=== PATIENT | male | born 1955 | race Caucasian/White ===

== ENCOUNTER 2020-06-07 16:13 | Emergency (ER) | payer BC, OTHER ==
[~2020-06-07] VITALS: Ht 177.8 cm; Wt 89.3 kg
[2020-06-07 17:21] LABS: BASOPHILS % (AUTO) 0 % (0-10); EOSINOPHILS # (AUTO) 0.1 10^3/uL (0.0-0.3); EOSINOPHILS % (AUTO) 1 % (0-10); HEMATOCRIT 45 % (40-54); HEMOGLOBIN 15.1 G/DL (13.3-17.7); LYMPHOCYTES # (AUTO) 1.4 X 10^3 (1.0-4.0); LYMPHOCYTES % (AUTO) 12 % (12-44); MEAN CORPUSCULAR HEMOGLOBIN 28 PG (25-34); MEAN CORPUSCULAR HGB CONC 34 G/DL (32-36); MEAN CORPUSCULAR VOLUME 84 FL (80-99); MEAN PLATELET VOLUME 10.3 FL (7.4-10.4); MONOCYTES # (AUTO) 0.6 X 10^3 (0.0-1.0); MONOCYTES % (AUTO) 5 % (0-12); NEUTROPHILS # (AUTO) 9.7 X 10^3 (1.8-7.8); NEUTROPHILS % (AUTO) 81 % (42-75); PLATELET COUNT 246 10^3/uL (130-400); WHITE BLOOD COUNT 11.9 10^3/uL (4.3-11.0)
--- NOTE | 2020-06-07 17:25 | ED GI ---
General Chief Complaint: Abdominal/GI Problems Stated Complaint: ABD PAIN,ACID REFLEX Nursing Triage Note: Patient presents to the ED with c/o abdominal cramping, nausea, and vomiting. He reports that he is lactose intolerant and has been eating cheese. He states yesterday he had 2 loose stools and today he woke up with abdominal pain, cramping, and nausea with vomiting starting just prior to arriving at the ED. Sepsis Screen: No Definite Risk Source of Information: Patient History of Present Illness Date Seen by Provider: Jun 07, 2020 Time Seen by Provider: 16:48 Initial Comments 65-year-old male presenting with concerns of abdominal cramping, nausea, vomiting, loose stools. He states that he has a history of hiatal hernia and diverticulitis as well as bowel obstructions in the past. He gets issues if he eats too much dairy or cheese products. Recently a friend had given him some sa usage and a block of cheese as a gift and he had been eating that each morning. He even had eaten some this morning even though he been having issues for the last several days. Today he was having worsening abdominal cramping and nausea with vomiting. He denies any fever or chills. He has had no blood in his stools. He has no localized pain in his belly it is diffuse. He has no pain with urination. He has seen no blood in his emesis. When he does eat it does not make his abdominal cramping any worse. He does feel better after he vomits. The pain does not radiate anywhere it is just diffuse throughout his abdomen. He denies any chest pain or shortness of breath. He has no pain in his back or shoulders. He is supposed to be taking omeprazole but does not take it regularly. Allergies and Home Medications Allergies Coded Allergies: No Known Drug Allergies (Unverified , 06/07/20) Home Medications Metoclopramide HCl 10 Mg Tablet, 10 MG PO QID PRN for NAUSEA/VOMITING Prescribed by: FELI STODDARD on 06/07/201923 Patient Home Medication List Home Medication List Reviewed: Yes Review of Systems Review of Systems Constitutional: No chills, No dizziness, No fever EENTM: No Symptoms Reported Respiratory: No Symptoms Reported Cardiovascular: No Symptoms Reported Gastrointestinal: See HPI, Abdominal Pain (Diffuse abdominal cramping worsening over the last several days); Denies Blood Streaked Stools; Constipated (Only getting some small loose stools out in the last few days); Denies Difficulty Swallowing; Nausea; Denies Rectal Bleeding; Vomiting Genitourinary: No Symptoms Reported Musculoskeletal: no symptoms reported Skin: no symptoms reported Psychiatric/Neurological: Denies Headache Endocrine: No Symptoms Reported Hematologic/Lymphatic: No Symptoms Reported Past Ojzyvap-Ztajpw-Ywgabl Hx Past Med/Social Hx: Reviewed Nursing Past Med/Soc Hx Patient Social History Alcohol Use: Rarely Uses Smoking Status: Never a Smoker 2nd Hand Smoke Exposure: No Recent Infectious Disease Expo: No Recent Hopitalizations: No Seasonal Allergies Seasonal Allergies: No Past Medical History Surgeries: No Respiratory: No Cardiac: No Neurological: No Genitourinary: No Gastrointestinal: Yes Gastroesophageal Reflux, Diverticulosis, Hiatal Hernia Musculoskeletal: No Endocrine: Yes HEENT: No Cancer: No Psychosocial: No Integumentary: No Blood Disorders: No Physical Exam Vital Signs Vital Signs - First Documented 06/07/20 17:00 Temp 36.0 Pulse 66 Resp 19 B/P (MAP) 154/86 (108) Pulse Ox 95 O2 Delivery Room Air Capillary Refill : Less Than 3 Seconds Height/Weight/BMI Height: '" Weight: lbs. oz. kg; 28.00 BMI Method: General Appearance: WD/WN, mild distress HEENT: PERRL/EOMI, pharynx normal Neck: non-tender, full range of motion, supple, normal inspection Respiratory: chest non-tender, lungs clear, normal breath sounds, no respiratory distress, no accessory muscle use Cardiovascular: normal peripheral pulses, regular rate, rhythm Gastrointestinal: normal bowel sounds, soft, no pulsatile mass; No guarding, No rebound; tenderness (Mild diffuse tenderness with palpation) Rectal: deferred Extremities: normal range of motion, normal capillary refill Neurologic/Psychiatric: alert, oriented x 3 Skin: normal color, warm/dry Images 1 - Mild diffuse abdominal tenderness with palpation. No guarding or rebound Progress/Results/Core Measures Results/Orders Lab Results Laboratory Tests Test 06/07/20 17:00 06/07/20 18:17 Range/Units White Blood Count 11.9 H 4.3-11.0 10^3/uL Red Blood Count 5.38 4.35-5.85 10^6/uL Hemoglobin 15.1 13.3-17.7 G/DL Hematocrit 45 40-54 % Mean Corpuscular Volume 84 80-99 FL Mean Corpuscular Hemoglobin 28 25-34 PG Mean Corpuscular Hemoglobin Concent 34 32-36 G/DL Red Cell Distribution Width 12.7 10.0-14.5 % Platelet Count 246 130-400 10^3/uL Mean Platelet Volume 10.3 7.4-10.4 FL Immature Granulocyte % (Auto) 0 % Neutrophils (%) (Auto) 81 H 42-75 % Lymphocytes (%) (Auto) 12 12-44 % Monocytes (%) (Auto) 5 0-12 % Eosinophils (%) (Auto) 1 0-10 % Basophils (%) (Auto) 0 0-10 % Neutrophils # (Auto) 9.7 H 1.8-7.8 X 10^3 Lymphocytes # (Auto) 1.4 1.0-4.0 X 10^3 Monocytes # (Auto) 0.6 0.0-1.0 X 10^3 Eosinophils # (Auto) 0.1 0.0-0.3 10^3/uL Basophils # (Auto) 0.0 0.0-0.1 10^3/uL Immature Granulocyte # (Auto) 0.0 0.0-0.1 10^3/uL Sodium Level 138 135-145 MMOL/L Potassium Level 4.1 3.6-5.0 MMOL/L Chloride Level 101 98-107 MMOL/L Carbon Dioxide Level 24 21-32 MMOL/L Anion Gap 13 5-14 MMOL/L Blood Urea Nitrogen 20 H 7-18 MG/DL Creatinine 1.01 0.60-1.30 MG/DL Estimat Glomerular Filtration Rate > 60 BUN/Creatinine Ratio 20 Glucose Level 120 H 70-105 MG/DL Calcium Level 9.6 8.5-10.1 MG/DL Corrected Calcium 8.5-10.1 MG/DL Magnesium Level 1.9 1.6-2.4 MG/DL Total Bilirubin 0.7 0.1-1.0 MG/DL Aspartate Amino Transf (AST/SGOT) 23 5-34 U/L Alanine Aminotransferase (ALT/SGPT) 16 0-55 U/L Alkaline Phosphatase 67 40-136 U/L Troponin I < 0.30 <0.30 NG/ML Pro-B-Type Natriuretic Peptide 16.1 <75.0 PG/ML Total Protein 7.4 6.4-8.2 GM/DL Albumin 4.8 H 3.2-4.5 GM/DL Lipase 37 8-78 U/L Urine Color YELLOW Urine Clarity CLEAR Urine pH 6.0 5-9 Urine Specific [place] >=1.030 1.016-1.022 Urine Protein NEGATIVE NEGATIVE Urine Glucose (UA) NEGATIVE NEGATIVE Urine Ketones 2+ H NEGATIVE Urine Nitrite NEGATIVE NEGATIVE Urine Bilirubin NEGATIVE NEGATIVE Urine Urobilinogen 0.2 < = 1.0 MG/DL Urine Leukocyte Esterase NEGATIVE NEGATIVE Urine RBC (Auto) NEGATIVE NEGATIVE Urine RBC NONE /HPF Urine WBC NONE /HPF Urine Squamous Epithelial Cells NONE /HPF Urine Crystals NONE /LPF Urine Bacteria TRACE /HPF Urine Casts NONE /LPF Urine Mucus SMALL H /LPF Urine Culture Indicated NO My Orders Orders - FELI STODDARD MD Comprehensive Metabolic Panel (06/07/20 17:14) Lipase (06/07/20 17:14) Ua Culture If Indicated (06/07/20 17:14) Ed Iv/Invasive Line Start (06/07/20 17:14) Cbc With Automated Diff (06/07/20 17:14) Ekg Tracing (06/07/20 17:14) Monitor-Rhythm Ecg Trace Only (06/07/20 17:14) Magnesium (06/07/20 17:14) Troponin I Fs (06/07/20 17:14) Probnp Fs (06/07/20 17:14) Ns Iv 1000 Ml (Sodium Chloride 0.9%) (06/07/20 17:55) Pantoprazole Injection (Protonix Injecti (06/07/20 17:55) Ondansetron Injection (Zofran Injectio (06/07/20 17:55) Ketorolac Injection (Toradol Injection) (06/07/20 17:55) Ct Abdomen/Pelvis W (06/07/20 17:56) Iohexol Injection (Omnipaque 350 Mg/Ml 1 (06/07/20 18:15) Received Contrast (Hold Metformin- Contr (06/07/20 18:15) Sodium Chloride Flush (Catheter Flush Sy (06/07/20 18:15) Ns (Ivpb) (Sodium Chloride 0.9% Ivpb Bag (06/07/20 18:15) Medications Given in ED Current Medications Medications Dose Ordered Sig/Tammi Route Start Time Stop Time Status Last Admin Dose Admin Iohexol 100 ml ONCE ONCE IV 06/07/20 18:15 06/07/20 18:16 DC 06/07/20 18:23 100 ML Sodium Chloride 10 ml NEEDED PRN IV 06/07/20 18:15 06/07/20 19:33 DC 06/07/20 18:23 10 ML Sodium Chloride 100 ml ONCE ONCE IV 06/07/20 18:15 06/07/20 18:16 DC 06/07/20 18:23 80 ML Vital Signs/I&O 06/07/20 06/07/20 17:00 19:32 Temp 36.0 Pulse 66 81 Resp 19 17 B/P (MAP) 154/86 (108) 159/78 Pulse Ox 95 98 O2 Delivery Room Air Room Air 06/08/20 00:00 Intake Total 1000 ml Balance 1000 ml Blood Pressure Mean: 108 Progress Progress Note #1: Progress Note Obtain labs with urinalysis and electrocardiogram. Electrocardiogram done due to his age and having epigastric and upper abdominal pain to evaluate for possible cardiac source of his symptoms. The electrocardiogram did not show any acute ST elevation or ischemic changes. There were no prior tracings for comparison. Try IV fluids for hydration, Zofran for nausea, Toradol for pain and inflammation, Protonix for gastritis and stomach irritation. Order a CT scan of the abdomen and pelvis to evaluate for possible colitis, diverticulitis, bowel obstruction, abdominal mass, cholecystitis, appendicitis, gastroenteritis, abdominal pathology to explain his symptoms. Progress Note #2: Progress Note Labs show a mild elevation of his white blood cell count of 11.9. His chemistry was stable without acute significant abnormality. His liver enzymes and lipase were elevated. His CT scan demonstrated inflammation of his intestines with dilated small bowel loops concerning for enteritis versus possible early small bowel obstruction. Discussed with the patient about the results and since he was tolerating oral intake and feeling better with treatment he wanted to try things at home. We will have him try a liquid diet and metoclopramide for motility. If his symptoms worsen return her be reevaluated. He may need admitted if he is not improving with the liquid diet and Reglan. Encouraged to take the omeprazole for acid reduction of the hiatal hernia as well. Initial ECG Impression Date: Jun 07, 2020 Initial ECG Impression Time: 16:46 Initial ECG Rate: 68 Initial ECG Rhythm: Normal Sinus Initial ECG Comparisson: No Previous ECG Available Comment Normal sinus rhythm with a heart rate of 68 bpm. NV interval [address] elevation. QT interval 392 ms with a QTc interval of 417 ms. There is no prior tracing available in the system. Diagnostic Imaging Diagonstic Imaging: CT Plain Films/CT/US/NM/MRI: abdomen, pelvis Comments [facility], [place] NAME: SATNAM HARRISON [facility] REC#: [id number] PT STATUS: REG ER : 1955 PHYSICIAN: FELI STODDARD MD ADMIT DATE: 06/07/20/ER FS Signed Date of Exam:06/07/20 CT ABDOMEN/PELVIS W PROCEDURE: CT abdomen and pelvis with contrast. TECHNIQUE: Multiple contiguous axial images were obtained through the abdomen and pelvis after administration of intravenous contrast. Auto Exposure Controls were utilized during the CT exam to meet ALARA standards for radiation dose reduction. All CT scans use one or more of the following dose optimizing techniques: automated exposure control, MA and/or KvP adjustment based on patient size and exam type or iterative reconstruction. DATE: June 07, 2020. COMPARISON: None. INDICATION: 65-year-old male, abdominal pain. FINDINGS: There is mild dependent atelectasis in the lung bases. The heart is not enlarged. There is no identified pericardial effusion. The liver is unremarkable in size and contour. There are subcentimeter low-attenuation lesions in the liver measuring roughly 5 mm in size or less which are too small to characterize. The main, right and left portal veins are patent. The gallbladder is unremarkable. There is no intrahepatic or extrahepatic bile duct dilation. The main pancreatic duct is not abnormally dilated. Unremarkable appearance of the pancreatic parenchyma. There is an accessory splenule on axial image 34. The spleen is normal in size. The adrenal glands are unremarkable. Unremarkable appearance of the renal parenchyma. The urinary collecting systems are not distended. There is no identified renal or ureteral stone. The urinary bladder is unremarkable in appearance. There is diverticulosis. There is no evidence of acute diverticulitis. There is no evidence of acute appendicitis. There are abnormally dilated segments of small bowel measuring up to approximately 2.8 cm in diameter. There are nondistended segments of distal ileum present. There is abnormal small bowel wall thickening in the left abdomen best illustrated on axial image 59 and adjacent sequential images. This is also well illustrated on coronal image 27 and adjacent sequential images. There is no identified pneumatosis. There is no portal venous gas. There is no free intraperitoneal air. There is no drainable fluid collection. There is a sizable volume free pelvic fluid. There are atherosclerotic calcifications. There are multiple abnormally prominent mesenteric lymph nodes measuring up to approximately 8 mm in short axis for example on axial image 49. There are subcentimeter short axis retroperitoneal lymph nodes as well. There is no identified acute bony abnormality. IMPRESSION: CT abdomen and pelvis: 1. Abnormal small bowel wall thickening and abnormal dilation of small bowel. This may relate to an infectious or inflammatory enteritis. The bowel distention may be reactive in nature. Early findings of a small bowel obstruction are difficult to exclude. 2. Prominent mesenteric and retroperitoneal lymph nodes which potentially could be reactive. Dictated by: Dictated on workstation # [id number] Dict: 06/07/20 1833 Trans: 06/07/201858 [facility] [id number] Interpreted by: BRITT ESPARZA MD Electronically signed by: BRITT ESPARZA MD 06/07/201858 Departure Impression Primary Impression: Enteritis Additional Impressions: Hiatal hernia with GERD Partial obstruction of small intestine Disposition: 01 HOME, SELF-CARE Condition: Stable Departure-Patient Inst. Decision time for Depature: 19:25 Referrals: NO,LOCAL PHYSICIAN (PCP) Primary Care Physician [facility] Patient Instructions: Acid Reflux and Gastroesophageal Reflux Disease in Adults, Small Bowel Obstruction (DC), Hiatal Hernia Add. Discharge Instructions: Follow a liquid diet for 24 to 48 hours to allow your intestines to rest and let the inflammation settle down. Use the nausea medicine to help keep your stomach settled so you can drink and stay hydrated. Advance to a bland diet after 48 hours. If you have increasing pain or vomiting despite liquid diet or bland diet then return or get checked in clinic to see if you need admit or scope to look at your stomach and intestines. Make sure you are taking your Omeprazole to help reduce the acid in your stomach and help with the hiatal hernia. You could establish with clinic at [facility] by calling [phone] All discharge instructions reviewed with patient and/or family. Voiced understanding. Scripts Metoclopramide HCl (Metoclopramide HCl) 10 Mg Tablet 10 MG PO QID PRN for NAUSEA/VOMITING for 7 Days, #28 TAB 0 Refills Prov: FELI STODDARD MD 06/07/20 FELI STODDARD MD Jun 07, 2020 17:25
[2020-06-07 17:32] LABS: ALKALINE PHOSPHATASE 67 U/L (40-136); BILIRUBIN,TOTAL 0.7 MG/DL (0.1-1.0); BUN/CREATININE RATIO 20; CALCIUM 9.6 MG/DL (8.5-10.1); CARBON DIOXIDE 24 MMOL/L (21-32); CHLORIDE 101 MMOL/L (98-107); CREATININE SERUM 1.01 MG/DL (0.60-1.30); GFR ESTIMATED > 60; GLUCOSE 120 MG/DL (70-105); MAGNESIUM 1.9 MG/DL (1.6-2.4); POTASSIUM 4.1 MMOL/L (3.6-5.0); SODIUM 138 MMOL/L (135-145)
[2020-06-07 17:33] LABS: ALANINE AMINOTRANSFERASE 16 U/L (0-55); ALBUMIN 4.8 GM/DL (3.2-4.5); LIPASE 37 U/L (8-78); TOTAL PROTEIN 7.4 GM/DL (6.4-8.2)
[2020-06-07] MEDS ORDERED: ONDANSETRON 4 MG/2 ML (SDV) Z0FRAN IVP STA (17:55)
[2020-06-07] MEDS ORDERED: NS IV 1000 ML 1,000 ML IV STA (17:55)
[2020-06-07] MEDS ORDERED: KETOROLAC 30 MG/ML VIAL IVP STA (17:55)
[2020-06-07] MEDS ORDERED: PANTOPRAZOLE 40 MG (PROTONIX) VIAL IV STA (17:55)
[2020-06-07] MEDS ORDERED: IOHEXOL 350 MG/ML 100 ML (OMNIPAQUE 350) VIAL IV ONE (18:15)
[2020-06-07] MEDS ORDERED: CATHETER FLUSH 10 ML SYR IV PRN (18:15)
[2020-06-07] MEDS ORDERED: HOLD METFORMIN - RECEIVED CONTRAST 20 ML VIAL IV SCH (18:15)
[2020-06-07] MEDS ORDERED: NS 100 ML (IVPB) BAG IV ONE (18:15)
[2020-06-07 18:27] LABS: BACTERIA,URINE TRACE /HPF; BILIRUBIN,URINE NEGATIVE (NEGATIVE); CLARITY,URINE CLEAR; COLOR,URINE YELLOW; GLUCOSE, URINE (UA) NEGATIVE (NEGATIVE); KETONES,URINE 2+ (NEGATIVE); LEUKOCYTE ESTERASE ,URINE NEGATIVE (NEGATIVE); NITRITE,URINE NEGATIVE (NEGATIVE); PROTEIN,URINE NEGATIVE (NEGATIVE)
--- NOTE | 2020-06-07 18:48 | Diagnostic Imaging Report ---
PROCEDURE: CT abdomen and pelvis with contrast. TECHNIQUE: Multiple contiguous axial images were obtained through the abdomen and pelvis after administration of intravenous contrast. Auto Exposure Controls were utilized during the CT exam to meet ALARA standards for radiation dose reduction. All CT scans use one or more of the following dose optimizing techniques: automated exposure control, MA and/or KvP adjustment based on patient size and exam type or iterative reconstruction. DATE: June 07, 2020. COMPARISON: None. INDICATION: 65-year-old male, abdominal pain. FINDINGS: There is mild dependent atelectasis in the lung bases. The heart is not enlarged. There is no identified pericardial effusion. The liver is unremarkable in size and contour. There are subcentimeter low-attenuation lesions in the liver measuring roughly 5 mm in size or less which are too small to characterize. The main, right and left portal veins are patent. The gallbladder is unremarkable. There is no intrahepatic or extrahepatic bile duct dilation. The main pancreatic duct is not abnormally dilated. Unremarkable appearance of the pancreatic parenchyma. There is an accessory splenule on axial image 34. The spleen is normal in size. The adrenal glands are unremarkable. Unremarkable appearance of the renal parenchyma. The urinary collecting systems are not distended. There is no identified renal or ureteral stone. The urinary bladder is unremarkable in appearance. There is diverticulosis. There is no evidence of acute diverticulitis. There is no evidence of acute appendicitis. There are abnormally dilated segments of small bowel measuring up to approximately 2.8 cm in diameter. There are nondistended segments of distal ileum present. There is abnormal small bowel wall thickening in the left abdomen best illustrated on axial image 59 and adjacent sequential images. This is also well illustrated on coronal image 27 and adjacent sequential images. There is no identified pneumatosis. There is no portal venous gas. There is no free intraperitoneal air. There is no drainable fluid collection. There is a sizable volume free pelvic fluid. There are atherosclerotic calcifications. There are multiple abnormally prominent mesenteric lymph nodes measuring up to approximately 8 mm in short axis for example on axial image 49. There are subcentimeter short axis retroperitoneal lymph nodes as well. There is no identified acute bony abnormality. IMPRESSION: CT abdomen and pelvis: 1. Abnormal small bowel wall thickening and abnormal dilation of small bowel. This may relate to an infectious or inflammatory enteritis. The bowel distention may be reactive in nature. Early findings of a small bowel obstruction are difficult to exclude. 2. Prominent mesenteric and retroperitoneal lymph nodes which potentially could be reactive. Dictated by: Dictated on workstation # [id number]
[2020-06-07] MEDS ORDERED: METO10TA3 PO (19:24)
[2020-06-07 19:32] VITALS: BP 159/78
== END 2020-06-07 19:32 | disposition home or self-care (01) ==
LOC: ER FS 16:15
DX: K52.9 Noninfective gastroenteritis and colitis, unspecified (principal); K44.0 Diaphragmatic hernia with obstruction, without gangrene
CPT/HCPCS: 36415; 74177; 80053; 81000; 83690; 83735; 83880; 84484; 85025; 93041

== ENCOUNTER 2021-01-02 08:49 | Emergency (ER) | payer BC ==
[~2021-01-02] VITALS: Ht 177.8 cm; Wt 81.8 kg
[~2021-01-02 08:49] MED LIST: MTC10T PO
[2021-01-02 08:51] VITALS: BP 146/70
[2021-01-02] MEDS ORDERED: ONDANSETRON 4 MG/2 ML (SDV) Z0FRAN IVP ONE (09:15)
[2021-01-02] MEDS ORDERED: NS IV 1000 ML 1,000 ML IV SCH (09:15)
--- NOTE | 2021-01-02 09:19 | ED Abdominal Pain ---
General Chief Complaint: Abdominal/GI Problems Stated Complaint: ABD PAIN,N/V,COUGH,SOB Nursing Triage Note: AMB TO ED WITH C/O VOMITING WITH ABD PAIN DECSCRIBES A BURNING. WAS SEEN AT [facility] YESTERDAY GIVEN A IM AND RX FOR DICYCLOMINE. Source of Information: Patient, Family Exam Limitations: No Limitations History of Present Illness Date Seen by Provider: Jan 02, 2021 Time Seen by Provider: 09:07 Initial Comments Patient is a 65-year-old male who presents to the emergency department today with a chief complaint of epigastric abdominal pain/burning. Onset about 24 hours ago. The patient has had multiple episodes of nausea and vomiting with subsequent dry heaves. He denies any black or bloody vomitus nothing that looks like coffee grounds he states it looks like a "brown water". He had a bowel movement at around 3:00 this morning and not diarrhea not black or bloody. No previous abdominal surgeries. 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 Patient thinks that maybe he has had too much ice cream with nuts in it recently. Denies any real fevers or chills. Has had a little cough. States that he is Covid vaccinated. Was seen at [facility] clinic yesterday given a shot for pain and prescribed dicyclomine. Patient states the medication has not worked. No family history of gallbladder disease. Nothing makes the pain any better or any worse but every time he tries to eat or drink he vomits. All other review of systems reviewed and negative except as stated. Timing/Duration: 24 Hours Severity/Quality: Severe, Burning Location: Epigastric Radiation: No Radiation Associated Symptoms: Nausea/Vomiting Allergies and Home Medications Allergies Coded Allergies: No Known Drug Allergies (Unverified , 06/07/20) Home Medications Metoclopramide HCl 10 Mg Tablet, 10 MG PO QID PRN for NAUSEA/VOMITING Prescribed by: FELI STODDARD on 06/07/201923 Patient Home Medication List Home Medication List Reviewed: Yes Review of Systems Review of Systems Constitutional: see HPI EENTM: No Symptoms Reported Respiratory: Cough Cardiovascular: No Symptoms Reported Gastrointestinal: Abdominal Pain, Nausea, Vomiting Genitourinary: No Symptoms Reported Musculoskeletal: no symptoms reported Skin: no symptoms reported All Other Systems Reviewed Negative Unless Noted: Yes Past Cloduls-Pfmdva-Ibtaad Hx Seasonal Allergies Seasonal Allergies: No Past Medical History Surgeries: No Respiratory: No Cardiac: No Neurological: No Genitourinary: No Gastrointestinal: Yes Gastroesophageal Reflux, Diverticulosis, Hiatal Hernia Musculoskeletal: No Endocrine: Yes HEENT: No Cancer: No Psychosocial: No Integumentary: No Blood Disorders: No Physical Exam Vital Signs Vital Signs - First Documented 01/02/21 08:51 Temp 35.1 Pulse 73 Resp 18 B/P (MAP) 146/70 (95) Pulse Ox 96 O2 Delivery Room Air Capillary Refill : Less Than 3 Seconds Height/Weight/BMI Height: '" Weight: lbs. oz. kg; 25.00 BMI Method: General Appearance: WD/WN, no apparent distress HEENT: PERRL/EOMI Respiratory: lungs clear, normal breath sounds, no respiratory distress, no accessory muscle use Cardiovascular: regular rate, rhythm Gastrointestinal: soft, abnormal bowel sounds (Hyperactive), distended (Mild), guarding (Voluntary), tenderness (Epigastric tenderness) Extremities: normal inspection, no pedal edema, no calf tenderness Neurologic/Psychiatric: alert, normal mood/affect, oriented x 3 Skin: normal color, warm/dry Progress/Results/Core Measures Results/Orders Lab Results Laboratory Tests Test 01/02/21 09:01 Range/Units White Blood Count 19.0 H 4.3-11.0 10^3/uL Red Blood Count 5.81 H 4.30-5.52 10^6/uL Hemoglobin 16.7 13.3-17.7 g/dL Hematocrit 49 40-54 % Mean Corpuscular Volume 85 80-99 fL Mean Corpuscular Hemoglobin 29 25-34 pg Mean Corpuscular Hemoglobin Concent 34 32-36 g/dL Red Cell Distribution Width 12.7 10.0-14.5 % Platelet Count 295 130-400 10^3/uL Mean Platelet Volume 10.5 9.0-12.2 fL Immature Granulocyte % (Auto) 0 % Neutrophils (%) (Auto) 82 H 42-75 % Lymphocytes (%) (Auto) 9 L 12-44 % Monocytes (%) (Auto) 9 0-12 % Eosinophils (%) (Auto) 0 0-10 % Basophils (%) (Auto) 0 0-10 % Neutrophils # (Auto) 15.6 H 1.8-7.8 10^3/uL Lymphocytes # (Auto) 1.6 1.0-4.0 10^3/uL Monocytes # (Auto) 1.6 H 0.0-1.0 10^3/uL Eosinophils # (Auto) 0.0 0.0-0.3 10^3/uL Basophils # (Auto) 0.0 0.0-0.1 10^3/uL Immature Granulocyte # (Auto) 0.1 0.0-0.1 10^3/uL Neutrophils % (Manual) 74 % Lymphocytes % (Manual) 9 % Monocytes % (Manual) 12 % Eosinophils % (Manual) 0 % Basophils % (Manual) 0 % Band Neutrophils 5 % Blood Morphology Comment NORMAL Sodium Level 137 135-145 MMOL/L Potassium Level 4.1 3.6-5.0 MMOL/L Chloride Level 101 98-107 MMOL/L Carbon Dioxide Level 20 L 21-32 MMOL/L Anion Gap 16 H 5-14 MMOL/L Blood Urea Nitrogen 26 H 7-18 MG/DL Creatinine 1.14 0.60-1.30 MG/DL Estimat Glomerular Filtration Rate 65 BUN/Creatinine Ratio 23 Glucose Level 149 H 70-105 MG/DL Calcium Level 10.6 H 8.5-10.1 MG/DL Corrected Calcium 8.5-10.1 MG/DL Total Bilirubin 1.9 H 0.1-1.0 MG/DL Aspartate Amino Transf (AST/SGOT) 23 5-34 U/L Alanine Aminotransferase (ALT/SGPT) 18 0-55 U/L Alkaline Phosphatase 77 40-136 U/L Total Protein 8.4 H 6.4-8.2 GM/DL Albumin 5.0 H 3.2-4.5 GM/DL Lipase 21 8-78 U/L My Orders Orders - TOSHIA GIRON MD Ed Iv/Invasive Line Start (01/02/21 09:15) Cbc With Automated Diff (01/02/21 09:15) Comprehensive Metabolic Panel (01/02/21 09:15) Lipase (01/02/21 09:15) Ns Iv 1000 Ml (Sodium Chloride 0.9%) (01/02/21 09:15) Ondansetron Injection (Zofran Injectio (01/02/21 09:15) Manual Differential (01/02/21 09:01) Sucralfate Tablet (Carafate Tablet) (01/02/21 10:00) Lidocaine 2% Viscous 15 Ml (Xylocaine Vi (01/02/21 10:00) Antacid Suspension (Mylanta Suspension (01/02/21 10:00) Us Gallbladder [id number] (01/02/21 11:01) Medications Given in ED Current Medications Medications Dose Ordered Sig/Tammi Route Start Time Stop Time Status Last Admin Dose Admin Al Hydrox/Mg Hydrox/Simethicone 30 ml ONCE ONCE PO 01/02/21 10:00 01/02/21 10:01 DC 01/02/21 10:31 30 ML Lidocaine HCl 5 ml ONCE ONCE PO 01/02/21 10:00 01/02/21 10:01 DC 01/02/21 10:31 5 ML Ondansetron HCl 8 mg ONCE ONCE IVP 01/02/21 09:15 01/02/21 09:16 DC 01/02/21 09:27 8 MG Sucralfate 1 gm ONCE ONCE PO 01/02/21 10:00 01/02/21 10:01 DC 01/02/21 10:30 1 GM Vital Signs/I&O 01/02/21 08:51 Temp 35.1 Pulse 73 Resp 18 B/P (MAP) 146/70 (95) Pulse Ox 96 O2 Delivery Room Air Blood Pressure Mean: 95 Diagnostic Imaging Diagonstic Imaging: Ultrasound Plain Films/CT/US/NM/MRI: other (gallbladder) Comments normal preliminary Departure Impression Primary Impression: Abdominal pain Qualified Codes: R10.13 - Epigastric pain Additional Impression: Gastroesophageal reflux Qualified Codes: K21.9 - Gastro-esophageal reflux disease without esophagitis Disposition: HOME, SELF-CARE Condition: Stable Departure-Patient Inst. Decision time for Depature: 12:06 Referrals: NO,LOCAL PHYSICIAN (PCP/Family) Primary Care Physician Patient Instructions: Abdominal Pain, Adult ED, Acid Reflux and GERD in Adults (DC) Add. Discharge Instructions: Take [id number] Prilosec, daily for the next month. I have also given you a prescription for Carafate this will help coat your stomach and make it feel little bit better. Nausea medicines have also been sent to your pharmacy. You can take extra strength Tylenol at home as needed for abdominal pain. Avoid fatty meals as this can worsen reflux symptoms. Follow-up with your primary care physician. Return to the emergency room for a recheck if fever, vomiting or for any new, concerning or emergent complaints. Scripts Ondansetron (Ondansetron Odt) 4 Mg Tab.rapdis 4 MG PO Q8H for nausea, #20 TAB Prov: TOSHIA GIRON MD 01/02/21 Sucralfate (Carafate) 1 Gm Tablet 1 GM PO QID, #60 TAB Prov: TOSHIA GIRON MD 01/02/21 TOSHIA GIRON MD Jan 02, 2021 09:19
[2021-01-02 09:21] LABS: BASOPHILS % (AUTO) 0 % (0-10); EOSINOPHILS % (AUTO) 0 % (0-10); HEMATOCRIT 49 % (40-54); HEMOGLOBIN 16.7 g/dL (13.3-17.7); LYMPHOCYTES # (AUTO) 1.6 10^3/uL (1.0-4.0); LYMPHOCYTES % (AUTO) 9 % (12-44); MEAN CORPUSCULAR HEMOGLOBIN 29 pg (25-34); MEAN CORPUSCULAR HGB CONC 34 g/dL (32-36); MEAN CORPUSCULAR VOLUME 85 fL (80-99); MEAN PLATELET VOLUME 10.5 fL (9.0-12.2); MONOCYTES # (AUTO) 1.6 10^3/uL (0.0-1.0); MONOCYTES % (AUTO) 9 % (0-12); NEUTROPHILS # (AUTO) 15.6 10^3/uL (1.8-7.8); NEUTROPHILS % (AUTO) 82 % (42-75); PLATELET COUNT 295 10^3/uL (130-400)
[2021-01-02 09:25] LABS: CHLORIDE 101 MMOL/L (98-107); POTASSIUM 4.1 MMOL/L (3.6-5.0); SODIUM 137 MMOL/L (135-145)
[2021-01-02 09:26] LABS: CALCIUM 10.6 MG/DL (8.5-10.1)
[2021-01-02 09:27] LABS: GLUCOSE 149 MG/DL (70-105); TOTAL PROTEIN 8.4 GM/DL (6.4-8.2)
[2021-01-02 09:28] LABS: CARBON DIOXIDE 20 MMOL/L (21-32)
[2021-01-02 09:29] LABS: BILIRUBIN,TOTAL 1.9 MG/DL (0.1-1.0)
[2021-01-02 09:30] LABS: ALKALINE PHOSPHATASE 77 U/L (40-136)
[2021-01-02 09:31] LABS: CREATININE SERUM 1.14 MG/DL (0.60-1.30); GFR ESTIMATED 65
[2021-01-02 09:32] LABS: BUN/CREATININE RATIO 23
[2021-01-02 09:33] LABS: ALANINE AMINOTRANSFERASE 18 U/L (0-55)
[2021-01-02 09:34] LABS: LIPASE 21 U/L (8-78)
[2021-01-02 09:53] LABS: BAND NEUTROPHILS 5 %; BASOPHILS % (MANUAL) 0 %; EOSINOPHILS % (MANUAL) 0 %; LYMPHOCYTES % (MANUAL) 9 %; MONOCYTES % (MANUAL) 12 %; NEUTROPHILS % (MANUAL) 74 %; RBC MORPH NORMAL
[2021-01-02] MEDS ORDERED: SUCRALFATE 1 GM (CARAFATE) TAB PO ONE (10:00)
[2021-01-02] MEDS ORDERED: LIDOCAINE 2% VISCOUS 15 ML UDC PO ONE (10:00)
[2021-01-02] MEDS ORDERED: ANTACID SUSP 30 ML UDC (MYLANTA) PO ONE (10:00)
[2021-01-02] MEDS ORDERED: ONDA4TAB11 PO (12:08)
[2021-01-02] MEDS ORDERED: SUCR1TAB36 PO (12:08)
--- NOTE | 2021-01-02 12:10 | Diagnostic Imaging Report ---
PROCEDURE: US Gallbladder. TECHNIQUE: Multiple real-time grayscale images were obtained over the right upper quadrant in various projections. INDICATION: Epigastric pain. COMPARISON: None. FINDINGS: The size and echogenicity of the liver is normal. There is no mass or intrahepatic biliary duct dilatation. Portal venous flow is normal. The common bile duct and pancreas are poorly visualized due to overlying bowel gas. Aorta and IVC are normal. The right kidney is intact. There is no ascites. The gallbladder wall and lumen are normal. There are no gallstones. IMPRESSION: Negative right upper quadrant ultrasound. Dictated by: Dictated on workstation # [id number]
== END 2021-01-02 12:22 | disposition home or self-care (01) ==
LOC: EDUNIT# 08:49 → ER 08:50
DX: K21.9 Gastro-esophageal reflux disease without esophagitis (principal)
CPT/HCPCS: 36415; 76705; 80053; 83690; 85007; 85027

== ENCOUNTER 2022-01-01 16:18 | Emergency (ER) | payer MEDICARE, BC ==
[~2022-01-01] VITALS: Ht 177 cm; Wt 82.0 kg
[~2022-01-01 16:18] MED LIST changes: +ONDA4TAB11 PO; +SUCR1TAB36 PO
[2022-01-01] MEDS ORDERED: ONDANSETRON 4 MG/2 ML (SDV) Z0FRAN IVP ONE (16:45)
[2022-01-01] MEDS ORDERED: KETOROLAC 30 MG/ML VIAL IVP ONE (16:45)
[2022-01-01] MEDS ORDERED: LACTATED RINGERS 1,000 ML IV STA (16:45)
--- NOTE | 2022-01-01 16:48 | ED GI ---
General Chief Complaint: Abdominal/GI Problems Stated Complaint: ABD PAIN Nursing Triage Note: ABD CRAMPING X2 DAYS. STATES HE HAD A REGULAR BM TODAY. DRY HEAVING. Source of Information: Patient Exam Limitations: No Limitations History of Present Illness Date Seen by Provider: Jan 01, 2022 Time Seen by Provider: 16:19 Initial Comments 66-year-old male with no pertinent past medical history coming in due to abdominal cramping with vomiting. Abdominal comings been going on for couple days and the nonbloody nonbilious vomiting started today with multiple episodes, now is just dry heaving. Had a normal bowel movement earlier and he has no diarrhea. Has had a cough for the past couple days as well and some general body aches. Has not had any fever, chest pain, shortness of breath, severe abdominal pain when he is not vomiting, weakness, numbness, rash, or any other concerns. Allergies and Home Medications Allergies Coded Allergies: No Known Drug Allergies (Unverified , 06/07/20) Patient Home Medication List Home Medication List Reviewed: Yes Metoclopramide HCl (Metoclopramide HCl) 10 Mg Tablet, 10 MG PO QID PRN for NAUSEA/VOMITING Prescribed by: FELI STODDARD on 06/07/201923 Ondansetron (Ondansetron Odt) 4 Mg Tab.rapdis, 4 MG PO Q8H Prescribed by: TOSHIA GIRON on 01/02/21 1208 Ondansetron (Ondansetron Odt) 4 Mg Tab.rapdis, 4 MG PO Q6H PRN for NAUSEA/VOMITING-1ST LINE Prescribed by: HEATHER CLEMONS on 01/01/22 175 Promethazine HCl (Promethazine Tablet) 25 Mg Tablet, 25 MG PO Q6H PRN for NAUSEA/VOMITING-2ND LINE Prescribed by: HEATHER CLEMONS on 01/01/22 175 Sucralfate (Carafate) 1 Gm Tablet, 1 GM PO QID Prescribed by: TOSHIA GIRON on 01/02/21 1208 Review of Systems Review of Systems Constitutional: No fever EENTM: No Blurred Vision Respiratory: Denies Cough Cardiovascular: Denies Chest Pain Gastrointestinal: Abdominal Pain, Nausea, Vomiting Genitourinary: No Symptoms Reported Musculoskeletal: no symptoms reported Skin: no symptoms reported Psychiatric/Neurological: No Symptoms Reported Endocrine: No Symptoms Reported Hematologic/Lymphatic: No Symptoms Reported All Other Systems Reviewed Negative Unless Noted: Yes Past Qvltypv-Txafza-Vckume Hx Patient Social History Tobacco Use?: No Substance use?: No Alcohol Use?: Yes Alcohol Frequency: Once in a while Immunizations Up To Date First/Initial COVID19 Vaccinat: July COVID19 Vaccination Qasim: August COVID19 Vaccination Date: [facility] 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: [employer] Seasonal Allergies Seasonal Allergies: No Past Medical History Surgeries: Yes (uvula removal for CRISTIAN) Respiratory: No Cardiac: No Neurological: No Genitourinary: No Gastrointestinal: Yes Gastroesophageal Reflux, Diverticulosis, Hiatal Hernia Musculoskeletal: No Endocrine: Yes HEENT: No Cancer: No Psychosocial: No Integumentary: No Blood Disorders: No Physical Exam Vital Signs Vital Signs - First Documented 01/01/22 16:20 Temp 36.8 Pulse 77 Resp 16 B/P (MAP) 169/81 (110) Pulse Ox 97 O2 Delivery Room Air Capillary Refill : Less Than 3 Seconds Height/Weight/BMI Height: '" Weight: lbs. oz. kg; 26.00 BMI Method: General Appearance: WD/WN, mild distress (leaning over bucket dry heaving ) HEENT: PERRL/EOMI, normal ENT inspection, pharynx normal Neck: non-tender, full range of motion, supple, normal inspection Respiratory: chest non-tender, lungs clear, normal breath sounds, no respiratory distress, no accessory muscle use Cardiovascular: regular rate, rhythm, no edema, no murmur Gastrointestinal: normal bowel sounds, non tender, soft; No abnormal bowel sounds, No guarding, No rebound Extremities: normal range of motion, non-tender, normal inspection, no pedal edema, no calf tenderness, normal capillary refill Back: normal inspection, no CVA tenderness Neurologic/Psychiatric: no motor/sensory deficits, alert, normal mood/affect Skin: normal color, warm/dry Lymphatic: no adenopathy Progress/Results/Core Measures Results/Orders Lab Results Laboratory Tests Test 01/01/22 16:30 01/01/22 17:03 Range/Units Sodium Level 142 135-145 MMOL/L Potassium Level 3.9 3.6-5.0 MMOL/L Chloride Level 105 98-107 MMOL/L Carbon Dioxide Level 21 21-32 MMOL/L Anion Gap 16 H 5-14 MMOL/L Blood Urea Nitrogen 15 7-18 MG/DL Creatinine 1.13 0.60-1.30 MG/DL Estimat Glomerular Filtration Rate 72 BUN/Creatinine Ratio 13 Glucose Level 127 H 70-105 MG/DL Calcium Level 10.1 8.5-10.1 MG/DL Influenza Type A (RT-PCR) Not Detected Not Detecte Influenza Type B (RT-PCR) Not Detected Not Detecte SARS-CoV-2 RNA (RT-PCR) Not Detected Not Detecte My Orders Orders - HEATHER CLEMONS MD Influenza A And B By Pcr (01/01/22 16:45) Covid 19 Inhouse Test (01/01/22 16:45) Basic Metabolic Panel (01/01/22 16:45) Ondansetron Injection (Zofran Injectio (01/01/22 16:45) Lactated Ringers (Lr 1000 Ml Iv Solution (01/01/22 16:45) Ketorolac Injection (Toradol Injection) (01/01/22 16:45) Medications Given in ED Current Medications Medications Dose Ordered Sig/Tammi Route Start Time Stop Time Status Last Admin Dose Admin Ketorolac Tromethamine 15 mg ONCE ONCE IVP 01/01/22 16:45 01/01/22 16:48 DC 01/01/22 16:54 15 MG Ondansetron HCl 4 mg ONCE ONCE IVP 01/01/22 16:45 01/01/22 16:48 DC 01/01/22 16:54 4 MG Vital Signs/I&O 01/01/22 16:20 Temp 36.8 Pulse 77 Resp 16 B/P (MAP) 169/81 (110) Pulse Ox 97 O2 Delivery Room Air Blood Pressure Mean: 110 Progress Progress Note : Progress Note 66-year-old male with above history coming in due to vomiting and abdominal cramps. ABCs were intact and vitals were stable on presentation. Physical exam with a soft and nontender abdomen. An IV was placed and he was given a bolus of IV fluids as well as Zofran for nausea and ketorolac for pain. Flu and COVID testing sent and pending at this time. Overall he is well-appearing and I believe stable for discharge. Departure Impression Primary Impression: Vomiting in adult Disposition: 01 HOME, SELF-CARE Condition: Stable Departure-Patient Inst. Decision time for Depature: 18:00 Referrals: NO,LOCAL PHYSICIAN (PCP/Family) Primary Care Physician Patient Instructions: Nausea and Vomiting, Adult Add. Discharge Instructions: 2 different nausea medicines were sent to your pharmacy to help. This typically will take 3 to 5 days to pass. Just try to take small but frequent sips of fluids and that time, you do not have to focus on food when you are feeling this way Scripts Promethazine HCl (Promethazine Tablet) 25 Mg Tablet 25 MG PO Q6H PRN for NAUSEA/VOMITING-2ND LINE for 5 Days, #20 TAB Prov: HEATHRE CLEMONS MD 01/01/22 Ondansetron (Ondansetron Odt) 4 Mg Tab.rapdis 4 MG PO Q6H PRN for NAUSEA/VOMITING-1ST LINE for 5 Days, #20 TAB Prov: HEATHER CLEMONS MD 01/01/22 Work/School Note: Work Release Form Date Seen in the Emergency Department: Jan 01, 2022 Return to Work: Jan 06, 2022 Restrictions: Return-No Fever (24hrs), Return-No Vomiting(24hrs) HEATHER CLEMONS MD Jan 01, 2022 16:48
[2022-01-01 16:59] LABS: POTASSIUM 3.9 MMOL/L (3.6-5.0)
[2022-01-01 17:00] LABS: CALCIUM 10.1 MG/DL (8.5-10.1)
[2022-01-01 17:04] LABS: CREATININE SERUM 1.13 MG/DL (0.60-1.30)
[2022-01-01] MEDS ORDERED: PROM25TA14 PO ×2 (17:57→18:03)
[2022-01-01] MEDS ORDERED: ONDA4TAB11 PO ×2 (17:57→18:03)
[2022-01-01 18:15] VITALS: BP 169/81
== END 2022-01-01 18:15 | disposition home or self-care (01) ==
LOC: EDUNIT# 16:18 → ER 16:19
DX: R11.10 Vomiting, unspecified (principal); Z20.822 Contact with and (suspected) exposure to COVID-19; Z28.310 Unvaccinated for COVID-19
CPT/HCPCS: 36415; 80048; 87636

== ENCOUNTER 2023-04-09 10:59 | Emergency (ER) | payer MEDICARE, BC ==
[~2023-04-09] VITALS: Ht 177 cm; Wt 85.0 kg
[~2023-04-09 10:59] MED LIST changes: +PROM25TA14 PO
--- NOTE | 2023-04-09 11:27 | ED Abdominal Pain ---
General Chief Complaint: Abdominal/GI Problems Stated Complaint: CHEST PAINS | LT ARM PAIN Nursing Triage Note: PATIENT REPORTS INCREASED REFLUX, EPIGASTRIC PAIN, SORE THROAT, AND CONGESTION OVER THE LAST FEW DAYS. HE WANTS TO BE SURE THAT THE PAIN IS NOT FROM HIS HEART Source of Information: Patient Exam Limitations: No Limitations History of Present Illness Date Seen by Provider: Apr 09, 2023 Time Seen by Provider: 11:25 Initial Comments Patient is a 68-year-old male who presents ED with epigastric abdominal pain chest pain sore throat congestion. Patient states he woke up with this burning pain to the center part of his chest and radiate to the left side of his chest. Did report a discomfort to his left armpit. States it feels more like soreness. No shortness of breath but does report a cough sore throat nasal congestion for the past 2 or 3 weeks. Exposure to RSV. Patient does have a history of acid reflux. Does take Nexium daily which typically resolves his pain in the morning. Denies known cardiac history history of hypertension, diabetes, high cholesterol smoking. Denies of any recent travels or surgeries. Patient denies attempting to take anything for this burning pain in his chest. He states he has had some burning sensation in his epigastric region and chest over the past few weeks but seem to get worse over the past few days. Denies of any vomiting, diarrhea, headache, dizziness, visual changes, fever, chills, cough. Allergies and Home Medications Allergies Coded Allergies: No Known Drug Allergies (Unverified , 06/07/20) Patient Home Medication List Home Medication List Reviewed: Yes Doxycycline Monohydrate (Doxycycline Monohydrate) 100 Mg Tablet, 100 MG PO BID Prescribed by: TALON MILLER on 04/09/23 1422 Metoclopramide HCl (Metoclopramide HCl) 10 Mg Tablet, 10 MG PO QID PRN for NAUSEA/VOMITING Prescribed by: FELI STODDARD on 06/07/20 192 Ondansetron (Ondansetron Odt) 4 Mg Tab.rapdis, 4 MG PO Q8H Prescribed by: TOSHIA GIRON on 01/02/21 1208 Ondansetron (Ondansetron Odt) 4 Mg Tab.rapdis, 4 MG PO Q6H PRN for NAUSEA/VOMITING-1ST LINE Prescribed by: HEATHER CLEMONS on 01/01/221802 Pantoprazole Sodium (Protonix) 40 Mg Tablet.dr, 40 MG PO DAILY Prescribed by: TALON MILLER on 04/09/23 1423 Promethazine HCl (Promethazine Tablet) 25 Mg Tablet, 25 MG PO Q6H PRN for NAUSEA/VOMITING-2ND LINE Prescribed by: HEATHER CLEMONS on 01/01/221802 Sucralfate (Carafate) 1 Gm Tablet, 1 GM PO QID Prescribed by: TOSHIA GIRON on 01/02/21 1208 Review of Systems Review of Systems Constitutional: No chills, No diaphoresis, No malaise, No weakness EENTM: No Eye Pain Respiratory: Denies Cough, Denies Shortness of Air Cardiovascular: Chest Pain; Denies Syncope Gastrointestinal: Abdominal Pain; Denies Diarrhea, Denies Nausea, Denies Vomiting Genitourinary: Denies Burning, Denies Discharge, Denies Drainage, Denies Freq uency, Denies Flank Pain Musculoskeletal: No back pain, No joint pain Skin: No change in color, No change in hair/nails All Other Systems Reviewed Negative Unless Noted: Yes Past Oqxpjsg-Ecjaew-Vqaqju Hx Patient Social History Tobacco Use?: No Smoking Status: Former Smoker Substance use?: No Alcohol Use?: No Pt feels they are or have been: No Immunizations Up To Date First/Initial COVID19 Vaccinat: UNKNOWN DATE Second COVID19 Vaccination Qasim: UNKNOWN DATE Third COVID19 Vaccination Date: UNKNOWN DATE Seasonal Allergies Seasonal Allergies: No Past Medical History Surgeries: Yes (uvula removal for CRISTIAN) Respiratory: No Cardiac: No Neurological: No Genitourinary: No Gastrointestinal: Yes Gastroesophageal Reflux, Diverticulosis, Hiatal Hernia Musculoskeletal: No Endocrine: Yes HEENT: No Cancer: No Psychosocial: No Integumentary: No Blood Disorders: No Physical Exam Vital Signs Vital Signs - First Documented 04/09/23 04/09/23 11:12 11:55 Temp 36.5 Pulse 58 Resp 16 B/P (MAP) 163/87 (112) Pulse Ox 96 O2 Delivery Room Air FiO2 97 Capillary Refill : Less Than 3 Seconds Height/Weight/BMI Height: '" Weight: lbs. oz. 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, no motor/sensory deficits, alert, normal mood/affect, oriented x 3 Skin: normal color, warm/dry Progress/Results/Core Measures Results/Orders Lab Results Laboratory Tests Test 04/09/23 11:45 04/09/23 13:45 Range/Units White Blood Count 8.1 4.3-11.0 10^3/uL Red Blood Count 4.74 4.30-5.52 10^6/uL Hemoglobin 13.6 13.3-17.7 g/dL Hematocrit 41 40-54 % Mean Corpuscular Volume 86 80-99 fL Mean Corpuscular Hemoglobin 29 25-34 pg Mean Corpuscular Hemoglobin Concent 33 32-36 g/dL Red Cell Distribution Width 12.7 10.0-14.5 % Platelet Count 203 130-400 10^3/uL Mean Platelet Volume 10.2 9.0-12.2 fL Immature Granulocyte % (Auto) 0 % Neutrophils (%) (Auto) 64 42-75 % Lymphocytes (%) (Auto) 27 12-44 % Monocytes (%) (Auto) 7 0-12 % Eosinophils (%) (Auto) 2 0-10 % Basophils (%) (Auto) 1 0-10 % Neutrophils # (Auto) 5.2 1.8-7.8 10^3/uL Lymphocytes # (Auto) 2.2 1.0-4.0 10^3/uL Monocytes # (Auto) 0.5 0.0-1.0 10^3/uL Eosinophils # (Auto) 0.1 0.0-0.3 10^3/uL Basophils # (Auto) 0.1 0.0-0.1 10^3/uL Immature Granulocyte # (Auto) 0.0 0.0-0.1 10^3/uL Prothrombin Time 13.7 12.2-14.7 SEC INR Comment 1.0 0.8-1.4 Activated Partial Thromboplast Time 29 24-35 SEC Sodium Level 138 135-145 MMOL/L Potassium Level 4.3 3.6-5.0 MMOL/L Chloride Level 109 H 98-107 MMOL/L Carbon Dioxide Level 25 21-32 MMOL/L Anion Gap 4 L 5-14 MMOL/L Blood Urea Nitrogen 14 7-18 MG/DL Creatinine 0.99 0.60-1.30 MG/DL Estimat Glomerular Filtration Rate 83 BUN/Creatinine Ratio 14 Glucose Level 96 70-105 MG/DL Calcium Level 8.8 8.5-10.1 MG/DL Corrected Calcium 8.8 8.5-10.1 MG/DL Magnesium Level 2.0 1.6-2.4 MG/DL Total Bilirubin 0.6 0.1-1.0 MG/DL Aspartate Amino Transf (AST/SGOT) 20 5-34 U/L Alanine Aminotransferase (ALT/SGPT) 15 0-55 U/L Alkaline Phosphatase 52 40-136 U/L Myoglobin 32.0 10.0-92.0 NG/ML Troponin I < 0.028 < 0.028 <0.028 NG/ML B-Type Natriuretic Peptide 48.2 <100.0 PG/ML Total Protein 6.5 6.4-8.2 GM/DL Albumin 4.0 3.2-4.5 GM/DL Lipase 71 8-78 U/L My Orders Orders - HEATHER LYN PA Cbc And Automated Diff (04/09/23 11:22) Magnesium (04/09/23 11:22) Chest 1 View, Ap/Pa Only (04/09/23 11:22) Ekg Tracing (04/09/23 11:22) Comprehensive Metabolic Panel (04/09/23 11:22) Myoglobin Serum (04/09/23 11:22) Protime With Inr (04/09/23 11:22) Partial Thromboplastin Time (04/09/23 11:22) O2 (04/09/23 11:22) Monitor-Rhythm Ecg Trace Only (04/09/23 11:22) Ed Iv/Invasive Line Start (04/09/23 11:22) Lipase (04/09/23 11:22) Bnp [place] (04/09/23 11:22) Troponin I Pérez (04/09/23 11:22) Aspirin Chewable Tablet (Aspirin Chewabl (04/09/23 11:30) Lidocaine 2% Viscous 15 Ml (Xylocaine Vi (04/09/23 11:30) Antacid Suspension (Antacid Suspension (04/09/23 11:30) Troponin I Pérez (04/09/23 13:45) Medications Given in ED Current Medications Medications Dose Ordered Sig/Tammi Route Start Time Stop Time Status Last Admin Dose Admin Al Hydrox/Mg Hydrox/Simethicone 30 ml ONCE ONCE PO 04/09/23 11:30 04/09/23 11:31 DC 04/09/23 11:52 30 ML Aspirin 324 mg ONCE ONCE PO 04/09/23 11:30 04/09/23 11:31 DC 04/09/23 11:52 324 MG Lidocaine HCl 15 ml ONCE ONCE PO 04/09/23 11:30 04/09/23 11:31 DC 04/09/23 11:52 15 ML Vital Signs/I&O 04/09/23 04/09/23 04/09/23 11:12 11:55 14:31 Temp 36.5 Pulse 58 60 Resp 16 16 B/P (MAP) 163/87 (112) 168/89 Pulse Ox 96 98 O2 Delivery Room Air Room Air Room Air FiO2 97 Blood Pressure Mean: 112 Comment Sinus rhythm, possible left atrial enlargement, 62 bpm, QRS duration 85 MS, QTc 426 MS. Departure Communication (PCP) Reviewed previous ER visits, H&P, lab testing. Differential diagnoses GERD, ACS, pneumonia, sinusitis, viral syndrome. Report flulike symptoms started about 3 weeks ago. Nasal congestion scratchy throat mild cough. She patient reports some burning sensation in his chest, especially in the morning and this became worse over the past 2 days. Does take Nexium which typically improves. No upper abdominal pain at this time. Patient was concerned that he had some pain in his left armpit as well as his right side. Has been working out recently. Patient is not tachycardic or hypoxic. No recent travels or surgeries. No leg swelling leg bruising or pain. Cardiac workup was initiated. Did receive a GI cocktail with improvement of the burning sensation in the chest. Did receive full aspirin. EKG sinus rhythm without evidence of ST elevation or pression. Chest x-ray negative for pneumonia, pneumothorax, pleural effusion. CBC, CMP grossly unremarkable. Normal lipase. No evidence suggesting surgical abdomen. Due to the presentation of the pain to the left arm 2-hour delta troponin was ordered which was negative. Does not have significant cardiac risk factors. Heart score of 3. Clinically appears to be more GERD/esophagitis then cardiac. Discussed switching Nexium to Protonix. He is required insisting something for this congestion and pressure and cough for the past 3 weeks. Discharged with doxycycline. Avoid eating late at night. Avoid spicy foods carbonated beverages. GI outpatient follow-up. If any worsening pain to return back to ED. Follow-up with your PCP in 2 to 3 days for reevaluation of symptoms. If any worsening chest pain or developing shortness of breath to return back to ED. Impression Primary Impression: Gastroesophageal reflux Disposition: 01 HOME, SELF-CARE Condition: Stable Departure-Patient Inst. Decision time for Depature: 14:21 Referrals: MARIUM JORDAN CASEY V DO (PCP/Family) Primary Care Physician Patient Instructions: Acid Reflux and GERD in Adults (DC) Scripts Pantoprazole Sodium (Protonix) 40 Mg Tablet. 40 MG PO DAILY, #20 TAB Prov: HEATHER LYN 04/09/23 Doxycycline Monohydrate (Doxycycline Monohydrate) 100 Mg Tablet 100 MG PO BID for 7 Days, #4 TAB Prov: HEATHER LYN 04/09/23 HEATHER LYN Apr 09, 2023 11:27
[2023-04-09] MEDS ORDERED: LIDOCAINE 2% VISCOUS 15 ML UDC PO ONE (11:30)
[2023-04-09] MEDS ORDERED: ANTACID SUSPENSION 30 ML UDC PO ONE (11:30)
[2023-04-09] MEDS ORDERED: ASPIRIN 81 MG CHEWABLE TABLET PO ONE (11:30)
--- NOTE | 2023-04-09 11:48 | Diagnostic Imaging Report ---
CLINICAL INDICATION: Patient with increased reflux and epigastric pain and sore throat and congestion over the last few days. Patient wants to be sure pain is not from his heart. EXAM: Portable chest x-ray upright view. COMPARISON: None. FINDINGS: Lungs/pleura: Lungs are clear. There is no pneumothorax. There is no pleural effusion. Mediastinum: Unremarkable. Pulmonary vasculature: Unremarkable. Heart: Unremarkable. Bones/extrathoracic soft tissue: Unremarkable. IMPRESSION: There is no radiographic evidence of acute cardiopulmonary process. Dictated by: Dictated on workstation # [id number]
[2023-04-09 11:52] LABS: BASOPHILS # (AUTO) 0.1 10^3/uL (0.0-0.1); BASOPHILS % (AUTO) 1 % (0-10); EOSINOPHILS # (AUTO) 0.1 10^3/uL (0.0-0.3); EOSINOPHILS % (AUTO) 2 % (0-10); HEMATOCRIT 41 % (40-54); HEMOGLOBIN 13.6 g/dL (13.3-17.7); LYMPHOCYTES # (AUTO) 2.2 10^3/uL (1.0-4.0); LYMPHOCYTES % (AUTO) 27 % (12-44); MEAN CORPUSCULAR HEMOGLOBIN 29 pg (25-34); MEAN CORPUSCULAR HGB CONC 33 g/dL (32-36); MEAN CORPUSCULAR VOLUME 86 fL (80-99); MEAN PLATELET VOLUME 10.2 fL (9.0-12.2); MONOCYTES # (AUTO) 0.5 10^3/uL (0.0-1.0); MONOCYTES % (AUTO) 7 % (0-12); NEUTROPHILS # (AUTO) 5.2 10^3/uL (1.8-7.8); NEUTROPHILS % (AUTO) 64 % (42-75); PLATELET COUNT 203 10^3/uL (130-400); WHITE BLOOD COUNT 8.1 10^3/uL (4.3-11.0)
[2023-04-09 12:04] LABS: CHLORIDE 109 MMOL/L (98-107); POTASSIUM 4.3 MMOL/L (3.6-5.0); SODIUM 138 MMOL/L (135-145)
[2023-04-09 12:06] LABS: CALCIUM 8.8 MG/DL (8.5-10.1); PROTHROMBIN TIME PATIENT 13.7 SEC (12.2-14.7)
[2023-04-09 12:07] LABS: GLUCOSE 96 MG/DL (70-105); TOTAL PROTEIN 6.5 GM/DL (6.4-8.2)
[2023-04-09 12:08] LABS: BILIRUBIN,TOTAL 0.6 MG/DL (0.1-1.0); CARBON DIOXIDE 25 MMOL/L (21-32)
[2023-04-09 12:10] LABS: ALKALINE PHOSPHATASE 52 U/L (40-136); CREATININE SERUM 0.99 MG/DL (0.60-1.30); GFR ESTIMATED 83
[2023-04-09 12:11] LABS: BUN/CREATININE RATIO 14
[2023-04-09 12:13] LABS: ALANINE AMINOTRANSFERASE 15 U/L (0-55)
[2023-04-09 12:14] LABS: LIPASE 71 U/L (8-78)
[2023-04-09] MEDS ORDERED: DOXY100T31 PO (14:22)
[2023-04-09] MEDS ORDERED: PANT40TA2 PO (14:23)
[2023-04-09 14:31] VITALS: BP 168/89
== END 2023-04-09 14:32 | disposition home or self-care (01) ==
LOC: EDUNIT# 10:59 → ER 11:02
DX: K21.9 Gastro-esophageal reflux disease without esophagitis (principal); Z79.899 Other long term (current) drug therapy; Z87.891 Personal history of nicotine dependence
CPT/HCPCS: 36415; 71045; 80053; 83690; 83735; 83874; 83880; 84484; 85025; 85610; 85730; 93005; 93041